=== PATIENT | female | born 1990 | race Caucasian/White ===

== ENCOUNTER → 2017-07-12 | Outpatient (CLI) | payer OTHER ==
[2017-07-12 08:37] LABS: CH 29.1; CHCM 32.7; HCT 39.4 % (34.0-46.0); HDW 2.47; HGB 12.9 gm/dL (11.4-16.0); MCH 29.1 pg (25.0-35.0); MCHC 32.6 g/dL (31.0-37.0); MCV 89.3 fL (80.0-100.0); Mean Platelet Volume 6.9; RBC 4.42 m/uL (3.80-5.40); RDW 13.9 % (11.5-15.5); WBC 6.3 k/uL (3.8-10.6)
--- NOTE | 2017-07-12 08:43 | US ---
EXAMINATION TYPE: US OB <= 14 wk fetus DATE OF EXAM: 07/12/2017 COMPARISON: NONE CLINICAL HISTORY: Confirm Dates Z36. EXAM PERFORMED: Transvaginal (TV) and Transabdominal (TA) EXAM MEASUREMENTS: GESTATIONAL AGE / DATING Physician Established: Not yet established Dates by LMP: unsure Dates by First Scan: No previous this is first scan Dates by Current Scan for: 3.5mm EDC: 6 weeks/0 days MATERNAL ANATOMY Uterus: 11.0 x 5.5. x 7.0cm Right Ovary: 2.8 x 1.8 x 1.9cm Left Ovary: 1.7 x 1.3 x 1.3cm Post CDS / Adnexa: wnl GESTATION / SURVEY CRL: 03.5mm (6 weeks/0 days) Yolk Sac (normal less than 6mm): 1.6mm Heart Rate: not visualized IUP: yes Date of LMP: unsure Beta HcG (if available): Not available at this time No heart rate seen at this time. Called office to give preliminary and was told just to fax the report when complete. IMPRESSION: pole noted with no definite heart tones. Differential diagnosis includes normal too early to detect a heart rate. demise in the differential diagnosis. Correlate with serial beta hCG and pelvic ultrasound as clinically warranted.
[2017-07-12 09:03] LABS: Glucose 99 mg/dL (74-99); Non-African American GFR(MDRD) >60 (>60 ml/min/1.73 sqM)
[2017-07-12 15:25] LABS: Treponemal Ab Non-Reactive (Non-Reactive)
== END | disposition home or self-care (01) ==
LOC: RADUSWWP 07:38
PROVIDERS: ATTEND Obstetrics & Gynecology
DX: Z36.9 Encounter for antenatal screening, unspecified (principal); Z34.81 Encounter for supervision of other normal pregnancy, first trimester; Z3A.01 Less than 8 weeks gestation of pregnancy
CPT/HCPCS: 36415; 76801; 76817; 82565; 82947; 84702; 85027; 86762; 86780; 86850; 86900; 86901; 87340; 87390

== ENCOUNTER → 2017-07-15 | Outpatient (CLI) | payer OTHER ==
[2017-07-15 08:41] LABS: Appearance,Urine Cloudy (Clear); Bilirubin,Urine Negative (Negative); Glucose,Urine (UA) Negative (Negative); Ketones,Urine Negative (Negative); Leukocyte Esterase,Urine Negative (Negative); Mucus,Urine Rare /hpf; Nitrite,Urine Negative (Negative); Particle Count 3437; Protein,Urine Negative (Negative); RBC,Urine 6 /hpf (0-5); Specific Gravity,Urine 1.012 (1.001-1.035); Squamous Epithelial Cell,Urine 1 /hpf (0-4); UA Billing (MACRO vs. MICRO) MICRO; Urobilinogen,Urine <2.0 mg/dL (<2.0); WBC,Urine 1 /hpf (0-5)
== END | disposition home or self-care (01) ==
LOC: LABWHC1 07:03
PROVIDERS: ATTEND Obstetrics & Gynecology
DX: O26.811 Pregnancy related exhaustion and fatigue, first trimester (principal); Z3A.00 Weeks of gestation of pregnancy not specified
CPT/HCPCS: 36415; 81001; 84702; 87086

== ENCOUNTER → 2017-07-22 | Outpatient (CLI) | payer OTHER | END | disposition home or self-care (01) | LOC: LABWHC1 15:32 | PROVIDERS: ATTEND Obstetrics & Gynecology | DX: O03.9 Complete or unspecified spontaneous abortion without complication (principal) | CPT/HCPCS: 36415; 84702 ==

== ENCOUNTER 2017-09-15 10:52 | Emergency (ER) | payer OTHER ==
[2017-09-15] MEDS ORDERED: SODIUM CHLORIDE 0.9% 1,000 ML IV STA (11:18)
[2017-09-15] MEDS ORDERED: METOCLOPRAMIDE 5 MG/ML 2 ML VIAL IVP STA (11:18)
[2017-09-15] MEDS ORDERED: MECLIZINE 12.5 MG TAB PO STA (11:18)
[2017-09-15] MEDS ORDERED: LORazepam 2 MG/ML INJ IV STA ×2 (11:19→11:56)
--- NOTE | 2017-09-15 11:24 | ED ---
General Adult HPI - General Chief complaint: Nausea/Vomiting/Diarrhea Stated complaint: Fever, vomiting Time Seen by Provider: 09/15/17 11:06 Source: patient, RN notes reviewed Mode of arrival: wheelchair Limitations: no limitations - History of Present Illness Initial comments: This a 27-year-old female presents emergency Department chief complaint sudden onset of dizziness, diaphoresis and vomiting. 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 Patient states that she still continues to be dizzy states that she is even dizzy at rest at this time. Patient denies any sort of pain denies chest pain, shortness breath, headache, abdominal pain. She denies any chance . She's had no prior history of vertigo. Patient denies any sick contacts though she did say that she had some diarrhea this morning. Patient's had no fever - Related Data Home Medications Medication Instructions Recorded Confirmed HYDROcodone/APAP 7.5-325MG [[place] 1 tab PO Q6HR PRN 04/28/15 09/15/17 7.5-325] Phentermine HCl [Adipex-P] 37.5 mg PO QAM 04/28/15 09/15/17 Previous Rx's Medication Instructions Recorded Meclizine [Antivert] 25 mg PO TID PRN #15 tab 09/15/17 Ondansetron Odt [Zofran Odt] 4 mg PO Q8HR PRN #10 tab 09/15/17 Allergies Allergy/AdvReac Type Severity Reaction Status Date / Time aspirin Allergy Swelling Verified 09/15/17 11:27 Penicillins Allergy Swelling Verified 09/15/17 11:27 Review of Systems ROS Statement: Those systems with pertinent positive or pertinent negative responses have been documented in the HPI. ROS Other: All systems not noted in ROS Statement are negative. Past Medical History Past Medical History: No Reported History History of Any Multi-Drug Resistant Organisms: None Reported Past Surgical History: Appendectomy, Section Past Anesthesia/Blood Transfusion Reactions: No Reported Reaction Past Psychological History: Anxiety, Depression Smoking Status: Current every day smoker Past Alcohol Use History: None Reported Past Drug Use History: None Reported General Exam Limitations: no limitations General appearance: alert, in no apparent distress, other (Patient is diaphoretic) Head exam: Present: atraumatic, normocephalic, normal inspection Eye exam: Present: normal appearance, PERRL, EOMI. Absent: scleral icterus, conjunctival injection, periorbital swelling ENT exam: Present: normal exam, normal oropharynx, mucous membranes moist, TM's normal bilaterally Neck exam: Present: normal inspection, full ROM. Absent: tenderness, meningismus, lymphadenopathy Respiratory exam: Present: normal lung sounds bilaterally. Absent: respiratory distress, wheezes, rales, rhonchi, stridor Cardiovascular Exam: Present: regular rate, normal rhythm, normal heart sounds. Absent: systolic murmur, diastolic murmur, rubs, gallop, clicks GI/Abdominal exam: Present: soft, normal bowel sounds. Absent: distended, tenderness, guarding, rebound, rigid Neurological exam: Present: alert, oriented X3, CN II-XII intact, reflexes normal. Absent: motor sensory deficit Psychiatric exam: Present: anxious Skin exam: Present: warm, dry, intact, normal color, diaphoretic. Absent: rash Course Vital Signs 09/15/17 11:04 Temperature 97.0 F L Pulse Rate 81 Respiratory 22 Rate Blood Pressure 130/70 O2 Sat by Pulse 100 Oximetry - Reevaluation(s) Reevaluation #1: 09/15/17 12:44 Patient updated and results and recheck at this time. Patient states she is symptom-free and feels much better. EKG Findings - EKG Comments: EKG Findings:: EKG performed at 11:31 normal sinus rhythm with a rate of 78 MO 138 QRS 84 QT/QTC 414/471 Medical Decision Making - Medical Decision Making 27-year-old female presented for dizziness nausea vomiting and sweating. Patient lab work, EKG all reviewed. Patient was given antiemetics, fluids and Antivert. She states she felt better but developed a panic attack at time she was given additional Ativan states that has resolved her symptoms. Patient states that this is has resolved. She was up-to-date on her lab results and agrees that she'll follow-up with primary care physician and return for any worsening symptoms. - Lab Data Result diagrams: 09/15/17 11:35 09/15/17 11:35 Lab Results 09/15/17 09/15/17 09/15/17 Range/Units 11:12 11:35 11:35 WBC 7.0 (3.8-10.6) k/uL RBC 5.11 (3.80-5.40) m/uL Hgb 14.1 (11.4-16.0) gm/dL Hct 43.8 (34.0-46.0) % MCV 85.8 (80.0-100.0) fL MCH 27.7 (25.0-35.0) pg MCHC 32.3 (31.0-37.0) g/dL RDW 15.1 (11.5-15.5) % Plt Count 403 (150-450) k/uL Neutrophils % 57 % Lymphocytes % 31 % Monocytes % 6 % Eosinophils % 2 % Basophils % 1 % Neutrophils # 4.0 (1.3-7.7) k/uL Lymphocytes # 2.2 (1.0-4.8) k/uL Monocytes # 0.4 (0-1.0) k/uL Eosinophils # 0.1 (0-0.7) k/uL Basophils # 0.0 (0-0.2) k/uL D-Dimer (<0.60) mg/L FEU Sodium 145 (137-145) mmol/L Potassium 3.5 (3.5-5.1) mmol/L Chloride 105 (98-107) mmol/L Carbon Dioxide 22 (22-30) mmol/L Anion Gap 18 mmol/L BUN 12 (7-17) mg/dL Creatinine 0.76 (0.52-1.04) mg/dL Est GFR (MDRD) Af Amer >60 (>60 ml/min/1.73 sqM) Est GFR (MDRD) Non-Af >60 (>60 ml/min/1.73 sqM) Glucose 116 H (74-99) mg/dL POC Glucose (mg/dL) 135 H (75-99) mg/dL POC Glu Florist ID Manish, Shellene Calcium 10.4 H (8.4-10.2) mg/dL Total Bilirubin 0.7 (0.2-1.3) mg/dL AST 29 (14-36) U/L ALT 20 (9-52) U/L Alkaline Phosphatase 94 (38-126) U/L Troponin I (0.000-0.034) ng/mL Total Protein 8.4 H (6.3-8.2) g/dL Albumin 5.1 H (3.5-5.0) g/dL 09/15/17 09/15/17 Range/Units 11:35 11:35 WBC (3.8-10.6) k/uL RBC (3.80-5.40) m/uL Hgb (11.4-16.0) gm/dL Hct (34.0-46.0) % MCV (80.0-100.0) fL MCH (25.0-35.0) pg MCHC (31.0-37.0) g/dL RDW (11.5-15.5) % Plt Count (150-450) k/uL Neutrophils % % Lymphocytes % % Monocytes % % Eosinophils % % Basophils % % Neutrophils # (1.3-7.7) k/uL Lymphocytes # (1.0-4.8) k/uL Monocytes # (0-1.0) k/uL Eosinophils # (0-0.7) k/uL Basophils # (0-0.2) k/uL D-Dimer 0.44 (<0.60) mg/L FEU Sodium (137-145) mmol/L Potassium (3.5-5.1) mmol/L Chloride (98-107) mmol/L Carbon Dioxide (22-30) mmol/L Anion Gap mmol/L BUN (7-17) mg/dL Creatinine (0.52-1.04) mg/dL Est GFR (MDRD) Af Amer (>60 ml/min/1.73 sqM) Est GFR (MDRD) Non-Af (>60 ml/min/1.73 sqM) Glucose (74-99) mg/dL POC Glucose (mg/dL) (75-99) mg/dL POC Glu Florist ID Calcium (8.4-10.2) mg/dL Total Bilirubin (0.2-1.3) mg/dL AST (14-36) U/L ALT (9-52) U/L Alkaline Phosphatase (38-126) U/L Troponin I <0.012 (0.000-0.034) ng/mL Total Protein (6.3-8.2) g/dL Albumin (3.5-5.0) g/dL Disposition Clinical Impression: Vertigo, Nausea & vomiting Disposition: HOME SELF-CARE Condition: Stable Instructions: Dizziness (ED) Additional Instructions: Please return to the Emergency Department if symptoms worsen or any other concerns. Prescriptions: Meclizine [Antivert] 25 mg PO TID PRN #15 tab PRN Reason: Vertigo Ondansetron Odt [Zofran Odt] 4 mg PO Q8HR PRN #10 tab PRN Reason: Nausea Referrals: Cori Esqueda MD [Primary Care Provider] - 1-2 days Time of Disposition: 12:45
[2017-09-15 11:32] LABS: Glucose,Whole Blood 135 mg/dL (75-99)
[2017-09-15 11:48] LABS: Basophils % (A) 1 %; Eosinophils # (A) 0.1 k/uL (0-0.7); Eosinophils % (A) 2 %; HCT 43.8 % (34.0-46.0); HGB 14.1 gm/dL (11.4-16.0); Lymphocytes # (A) 2.2 k/uL (1.0-4.8); Lymphocytes % (A) 31 %; MCH 27.7 pg (25.0-35.0); MCHC 32.3 g/dL (31.0-37.0); MCV 85.8 fL (80.0-100.0); Mean Platelet Volume 7.4; Monocytes # (A) 0.4 k/uL (0-1.0); Monocytes % (A) 6 %; Neutrophils % (A) 57 %; Platelet Count 403 k/uL (150-450); RBC 5.11 m/uL (3.80-5.40); RDW 15.1 % (11.5-15.5)
[2017-09-15 12:01] LABS: ALT 20 U/L (9-52); AST 29 U/L (14-36); Albumin 5.1 g/dL (3.5-5.0); Alkaline Phosphatase 94 U/L (38-126); Anion Gap 18 mmol/L; Blood Urea Nitrogen 12 mg/dL (7-17); Calcium 10.4 mg/dL (8.4-10.2); Carbon Dioxide 22 mmol/L (22-30); Chloride 105 mmol/L (98-107); Glucose 116 mg/dL (74-99); Potassium 3.5 mmol/L (3.5-5.1); Sodium 145 mmol/L (137-145); Total Bilirubin 0.7 mg/dL (0.2-1.3); Total Protein 8.4 g/dL (6.3-8.2)
[2017-09-15 13:15] VITALS: BP 127/77; PULSE 70; RESP 20; TEMP 97.8
== END 2017-09-15 13:13 | disposition home or self-care (01) ==
LOC: EC 10:52
DX: R11.2 Nausea with vomiting, unspecified (principal); R42 Dizziness and giddiness; F41.9 Anxiety disorder, unspecified; R61 Generalized hyperhidrosis; R19.7 Diarrhea, unspecified; F17.200 Nicotine dependence, unspecified, uncomplicated; Z79.899 Other long term (current) drug therapy; Z88.0 Allergy status to penicillin; Z88.6 Allergy status to analgesic agent; Z90.49 Acquired absence of other specified parts of digestive tract
CPT/HCPCS: 36415; 93005; 85379; 80053; 84484; 85025; 99284; 96374; 96375; 96361; J2060; J2765

== ENCOUNTER → 2018-03-11 | Outpatient (CLI) | payer OTHER ==
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
== END | disposition home or self-care (01) ==
LOC: RADMRIMAIN 21:13
PROVIDERS: ATTEND Psychiatry & Neurology Neurology
DX: M47.812 Spondylosis without myelopathy or radiculopathy, cervical region (principal); Z88.6 Allergy status to analgesic agent; Z88.0 Allergy status to penicillin
CPT/HCPCS: 72141

== ENCOUNTER 2018-04-18 00:38 | Emergency (ER) | payer OTHER ==
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
[2018-04-18] MEDS ORDERED: KETOROLAC 60 MG/2 ML VIAL IM STA (03:22)
[2018-04-18 03:35] VITALS: BP 131/58; PULSE 69; RESP 16; TEMP 98.7
== END 2018-04-18 03:35 | disposition home or self-care (01) ==
LOC: EC 00:38
DX: S06.0X0A Concussion without loss of consciousness, initial encounter (principal); S00.83XA Contusion of other part of head, initial encounter; H70.11 Chronic mastoiditis, right ear; F17.200 Nicotine dependence, unspecified, uncomplicated; Z79.899 Other long term (current) drug therapy; Z88.0 Allergy status to penicillin; Z88.6 Allergy status to analgesic agent; Y04.0XXA Assault by unarmed brawl or fight, initial encounter
CPT/HCPCS: 81025; 72125; 70486; 70450; 99284; 96372; J1885

== ENCOUNTER 2019-11-06 14:40 | Emergency (ER) | payer OTHER ==
[2019-11-06 14:43] VITALS: BP 121/83; PULSE 106; TEMP 98.4
--- NOTE | 2019-11-06 15:29 | ED ---
General Adult HPI - General Chief complaint: Fever Stated complaint: poss flu/fever/son has positive influenza Time Seen by Provider: 11/06/19 14:44 Source: patient, RN notes reviewed Mode of arrival: ambulatory Limitations: no limitations - History of Present Illness Initial comments: 29-year-old female presents to the emergency department for a chief complaint of flulike symptoms. Patient states she has had cough congestion for 3 days. States she has had body aches as well. Patient believes she has been having fevers at home. States that her child was diagnosed with influenza A. Patient does admit to smoking but states she has cutback while she's been sick. She denies chest pain or shortness of breath. Denies sore throat or ear pain. No recent foreign or domestic travel. Patient has no other complaints at this time including shortness of breath, chest pain, abdominal pain, nausea or vomiting, headache, or visual changes. - Related Data Home Medications Medication Instructions Recorded Confirmed HYDROcodone/APAP 7.5-325MG [[place] 1 tab PO Q6HR PRN 04/28/15 09/15/17 7.5-325] Phentermine HCl [Adipex-P] 37.5 mg PO QAM 04/28/15 09/15/17 Previous Rx's Medication Instructions Recorded Meclizine [Antivert] 25 mg PO TID PRN #15 tab 09/15/17 Ondansetron Odt [Zofran Odt] 4 mg PO Q8HR PRN #10 tab 09/15/17 Ibuprofen [Motrin] 600 mg PO Q6HR PRN #30 day 04/18/18 Allergies Allergy/AdvReac Type Severity Reaction Status Date / Time amoxicillin Allergy Unknown Verified 11/06/19 14:42 aspirin Allergy Swelling Verified 11/06/19 14:42 Penicillins Allergy Swelling Verified 11/06/19 14:42 Review of Systems ROS Statement: Those systems with pertinent positive or pertinent negative responses have been documented in the HPI. ROS Other: All systems not noted in ROS Statement are negative. Past Medical History Past Medical History: No Reported History History of Any Multi-Drug Resistant Organisms: None Reported Past Surgical History: Appendectomy, Section Past Anesthesia/Blood Transfusion Reactions: No Reported Reaction Past Psychological History: Anxiety, Depression Smoking Status: Current every day smoker Past Alcohol Use History: None Reported Past Drug Use History: Marijuana General Exam Limitations: no limitations General appearance: alert, in no apparent distress Head exam: Present: atraumatic, normocephalic, normal inspection Eye exam: Present: normal appearance, PERRL, EOMI. Absent: scleral icterus, conjunctival injection, periorbital swelling ENT exam: Present: normal exam, normal oropharynx, mucous membranes moist, TM's normal bilaterally, normal external ear exam Neck exam: Present: normal inspection, full ROM. Absent: tenderness, meningismus, lymphadenopathy Respiratory exam: Present: normal lung sounds bilaterally. Absent: respiratory distress, wheezes, rales, rhonchi, stridor Cardiovascular Exam: Present: regular rate, normal rhythm, normal heart sounds. Absent: systolic murmur, diastolic murmur, rubs, gallop, clicks GI/Abdominal exam: Present: soft, normal bowel sounds. Absent: distended, tenderness, guarding, rebound, rigid Neurological exam: Present: alert Course Vital Signs 11/06/19 14:41 Temperature 98.4 F Pulse Rate 106 H Respiratory 20 Rate Blood Pressure 121/83 O2 Sat by Pulse 100 Oximetry Procedures - Smoking Cessation Time Spent Discussing Smoking Cessation w/Patient (Minutes): 3 Patient Acknowledges Need for Cessation: Yes Medical Decision Making - Medical Decision Making 29-year-old well-appearing female presents for cough and fever. Patient has had symptoms for about 3 days. Patient sent have influenza A. Vitals are stable. Physical exam is unremarkable. Lungs are clear to auscultation bilaterally.Influenza A positive. Chest x-ray negative for acute process. Patient is outside of the [place] for Tamiflu. Recommended fluids and Motrin and Tylenol. Recommended returning for any worsening symptoms and otherwise following up with primary care. - Lab Data Lab Results 11/06/19 Range/Units 15:00 Influenza Type A RNA Detected H (Not Detectd) Influenza Type B (PCR) Not Detected (Not Detectd) Disposition Clinical Impression: Influenza A Disposition: HOME SELF-CARE Condition: Good Instructions (If sedation given, give patient instructions): Fever in Adults (ED), Influenza (ED) Additional Instructions: Please take Motrin and Tylenol for fever and pain alternating up to every 3 hours as needed. You may take up to 600 mg of Motrin and up to 1-2 extra strength Tylenols at a time. Return for any worsening symptoms or difficulty breathing. Otherwise follow-up with primary care in 1-2 days. Is patient prescribed a controlled substance at d/c from ED?: No Referrals: Cori Esqueda MD [Primary Care Provider] - 1-2 days Time of Disposition: 15:54
--- NOTE | 2019-11-06 15:48 | XR ---
EXAMINATION TYPE: XR chest 2V DATE OF EXAM: 11/06/2019 COMPARISON: NONE HISTORY: Cough and thoracic back pain for 3 days. Fever. TECHNIQUE: Frontal and lateral views of the chest are obtained. FINDINGS: There is no focal air space opacity, pleural effusion, or pneumothorax seen. The cardiac silhouette size is within normal limits. The osseous structures are intact. IMPRESSION: No acute cardiopulmonary process.
[2019-11-06 16:18] VITALS: RESP 19
== END 2019-11-06 16:18 | disposition home or self-care (01) ==
LOC: EC 14:40
DX: J10.1 Influenza due to other identified influenza virus with other respiratory manifestations (principal); F17.200 Nicotine dependence, unspecified, uncomplicated; Z20.828 Contact with and (suspected) exposure to other viral communicable diseases; Z88.0 Allergy status to penicillin; Z88.1 Allergy status to other antibiotic agents; Z88.6 Allergy status to analgesic agent; Z71.6 Tobacco abuse counseling
CPT/HCPCS: 71046; 87502; 99283; 99406

== ENCOUNTER → 2022-01-08 | Outpatient (CLI) | payer OTHER ==
--- NOTE | 2022-01-08 14:52 | US ---
EXAMINATION TYPE: Transabdominal DATE OF EXAM: 01/08/2022 1:48 PM COMPARISON: NONE CLINICAL HISTORY: Z36.89 CONFIRM DATES AND VIABILITY. Positive beta-hCG test. EXAM PERFORMED: Transabdominal (TA) EXAM MEASUREMENTS: GESTATIONAL AGE / DATING Physician Established: (11 weeks/4 days) EDC: 07/26/2022 Dates by LMP: (11 weeks/4 days) EDC: 07/26/2022 Dates by First Scan: ( weeks/ days) EDC: No previous Dates by Current Scan for: (12 weeks/2 days) EDC: 07/21/22 MATERNAL ANATOMY Uterus: 14.3 x 8.7 x 8.0 cm Right Ovary: 2.3 x 1.9 x 1.6 cm Left Ovary: 3.3 x 2.4 x 2.0 cm Post CDS / Adnexa: wnl Presence of free fluid: no Presence of corpus luteal cyst: no Presence of subchorionic bleed: no GESTATION / SURVEY CRL: 5.9 (12 weeks/3 days) MSD: 5.7 (11 weeks/5 days) Heart Rate: 175 bpm Rhythm: Normal IUP: Viable IUP Age Appropriate Anatomy Cord Insertion: Visualized Limbs: Visualized Calvarium: Visualized Date of LMP: 10/19/21 Beta HcG (if available): Single live intrauterine gestation as gestational sac and pole seen. Yolk sac not clearly ident ified. No free fluid. Both ovaries seen. No suspicious extraovarian adnexal mass noted. IMPRESSION: Single live intrauterine gestation now identified, mean crown-rump length is 5.9 cm corre sponding to 12 weeks 3 day old fetus.
== END | disposition home or self-care (01) ==
LOC: RADUSWWP 13:12
PROVIDERS: ATTEND Obstetrics & Gynecology
DX: Z36.89 Encounter for other specified antenatal screening (principal); Z3A.12 12 weeks gestation of pregnancy
CPT/HCPCS: 76801

== ENCOUNTER 2022-03-04 14:52 | Emergency (ER) | payer OTHER ==
[2022-03-04 14:55] VITALS: TEMP 98.5
[2022-03-04] MEDS ORDERED: DEXAMETHASONE SOD PHOSPHATE 10 MG/ML 1 ML VIAL IM STA (16:09)
[2022-03-04] MEDS ORDERED: ALBUTEROL NEBULIZED 2.5 MG/3 ML INHALATION STA (16:09)
[2022-03-04] MEDS ORDERED: ACETAMINOPHEN TAB 500 MG TAB PO STA (16:10)
--- NOTE | 2022-03-04 16:15 | ED ---
URI HPI - General Chief Complaint: Upper Respiratory Infection Stated Complaint: SOB/Congestion/Cough Time Seen by Provider: 03/04/22 16:03 Source: patient, RN notes reviewed Mode of arrival: ambulatory Limitations: no limitations - History of Present Illness Initial Comments: This is a 31-year-old female presents to emergency department complaining of symptoms of upper respiratory infection for the past 3 days. Patient states that she has a clear runny nose, scratchy throat, nasal congestion, dry cough, some sinus pressure, possible subjective low-grade fever. States she's also had some shortness of breath. Patient is a cigarette smoker. Patient is also 19 weeks . Patient is A3. Patient denies any abdominal pain. She denies any vaginal bleeding. No vaginal leakage. No difficulties with the . Patient did use her significant other's inhaler yesterday and states that it didn't help. Patient has no history of asthma or other lung pathology. No headache, no fever or chills, no changes in vision or hearing, no sore throat or difficulty with speech, no neck pain, no chest pain, no abdominal pain, no nausea or vomiting, no changes in urination or bowel movements, no numbness or tingling, no extremity pain, no skin rashes or lesions. MD Complaint: cough, rhinorrhea, nasal congestion Onset/Timin -: days(s) - Related Data Home Medications Medication Instructions Recorded Confirmed HYDROcodone/APAP 7.5-325MG [[place] 1 tab PO Q6HR PRN 04/28/15 09/15/17 7.5-325] Phentermine HCl [Adipex-P] 37.5 mg PO QAM 04/28/15 09/15/17 Previous Rx's Medication Instructions Recorded Meclizine [Antivert] 25 mg PO TID PRN #15 tab 09/15/17 Ondansetron Odt [Zofran Odt] 4 mg PO Q8HR PRN #10 tab 09/15/17 Ibuprofen [Motrin] 600 mg PO Q6HR PRN #30 day 04/18/18 Albuterol Inhaler [Ventolin Hfa 2 puff INHALATION Q4HR PRN #1 each 03/04/22 Inhaler] Allergies Allergy/AdvReac Type Severity Reaction Status Date / Time amoxicillin Allergy Unknown Verified 07/10/22 14:53 aspirin Allergy Swelling Verified 03/04/22 14:53 Penicillins Allergy Swelling Verified 03/04/22 14:53 Review of Systems ROS Statement: Those systems with pertinent positive or pertinent negative responses have been documented in the HPI. ROS Other: All systems not noted in ROS Statement are negative. Past Medical History Past Medical History: No Reported History Additional Past Medical History / Comment(s): Fibromyalgia. History of Any Multi-Drug Resistant Organisms: None Reported Past Surgical History: Appendectomy, Section Past Anesthesia/Blood Transfusion Reactions: No Reported Reaction Past Psychological History: Anxiety, Depression Smoking Status: Never smoker Past Alcohol Use History: None Reported Past Drug Use History: Marijuana General Exam - General Exam Comments Initial Comments: Nontoxic-appearing 31-year-old female in no significant distress. Appears to be adequately hydrated. Dry cough noted throughout the course of the exam. Cranial nerves II through XII grossly intact Limitations: no limitations General appearance: alert, in no apparent distress Head exam: Present: atraumatic, normocephalic, normal inspection Eye exam: Present: normal appearance, PERRL, EOMI. Absent: scleral icterus, conjunctival injection, periorbital swelling ENT exam: Present: normal exam, normal oropharynx, mucous membranes moist, TM's normal bilaterally, normal external ear exam, other (Clear postnasal drainage noted). Absent: mucous membranes dry Expanded Ear exam: Present: normal external inspection Mouth exam: Present: normal external inspection. Absent: drooling, trismus, muffled voice, tongue normal, tongue elevation Teeth exam: Present: normal inspection Throat exam: negative: tonsillar erythema, tonsillomegaly, tonsillar exudate, R peritonsillar mass, L peritonsillar mass Neck exam: Present: normal inspection. Absent: tenderness, meningismus, lymphadenopathy Respiratory exam: Present: normal lung sounds bilaterally. Absent: respiratory distress, wheezes, rales, rhonchi, stridor Cardiovascular Exam: Present: regular rate, normal rhythm, normal heart sounds. Absent: systolic murmur, diastolic murmur, rubs, gallop, clicks GI/Abdominal exam: Present: soft, normal bowel sounds. Absent: distended, tenderness, guarding, rebound, rigid Extremities exam: Present: normal inspection, full ROM, normal capillary refill. Absent: tenderness, pedal edema, joint swelling, calf tenderness Back exam: Present: normal inspection Neurological exam: Present: alert, oriented X3, CN II-XII intact Psychiatric exam: Present: normal affect, normal mood Skin exam: Present: warm, dry, intact, normal color. Absent: rash Course Vital Signs 03/04/22 03/04/22 03/04/22 14:53 17:27 17:35 Temperature 98.5 F Pulse Rate 100 100 100 Respiratory 18 Rate Blood Pressure 119/76 O2 Sat by Pulse 99 Oximetry - Reevaluation(s) Reevaluation #1: 03/04/22 17:46 Medical record is reviewed Symptoms are improved here in the emergency department Patient is informed of results and questions answered Patient in no distress Procedures - Smoking Cessation Time Spent Discussing Smoking Cessation w/Patient (Minutes): 3 Patient Acknowledges Need for Cessation: Yes Medical Decision Making - Medical Decision Making Patient symptomology consistent with a viral upper respiratory infection. Patient is 19 weeks . Patient does not appear to be overtly ill or toxic. We'll order a dose of dexamethasone, albuterol treatment, COVID-19, influenza testing. heart tone testing. I do not believe the patient needs chest x-ray at this point. Findings not consistent with bacterial pneumonia. Patient is afebrile. Vital signs are reviewed. Oxygen saturation is normal. Patient is a cigarette smoker. I did counseling case manager the patient on smoking cessation. heart tones were in the 150s. Patient's symptomology consistent with viral bronchitis/viral URI. Patient improved after albuterol treatment. We will prescribe an inhaler. Patient was told to return to the ER for any signs or symptoms worsen. Told to return immediately if any other problems arise. All questions answered. Treatment plan discussed. Patient in agreement Every effort has been made to ensure accuracy of this dictation. However, due to the limitations of electronic medical records and dictation devices, errors in charting still occur. Water Truck Driver Dr. Key - Lab Data Lab Results 03/04/22 03/04/22 Range/Units 16:33 16:33 Coronavirus (PCR) Not Detected (Not Detectd) Influenza Type A RNA Not Detected (Not Detectd) Influenza Type B (PCR) Not Detected (Not Detectd) Disposition Clinical Impression: Viral URI with cough, Cigarette smoker Disposition: HOME SELF-CARE Condition: Good Instructions (If sedation given, give patient instructions): How to Stop Smoking (ED), Secondhand Smoke Exposure in Children (ED) Additional Instructions: Follow-up with your regular physician as directed. Return to the ER immediately if any symptoms worsen, new symptoms arise, or any other problems develop. Follow-up with your GRANULIZING MACHINE OPERATOR physician in 2-3 days for reevaluation. Prescriptions: Albuterol Inhaler [Ventolin Hfa Inhaler] 2 puff INHALATION Q4HR PRN #1 each PRN Reason: Wheezing Is patient prescribed a controlled substance at d/c from ED?: No Referrals: None,Stated [REFERRING] - 1-2 days Time of Disposition: 17:47
[2022-03-04 18:01] VITALS: BP 125/64; PULSE 85; RESP 15
== END 2022-03-04 18:01 | disposition home or self-care (01) ==
LOC: EC 14:52
DX: J06.9 Acute upper respiratory infection, unspecified (principal); F17.210 Nicotine dependence, cigarettes, uncomplicated; Z20.822 Contact with and (suspected) exposure to COVID-19; Z88.0 Allergy status to penicillin; Z88.6 Allergy status to analgesic agent
CPT/HCPCS: 94640; 87502; 87635; 99284; 96372; J1100

== ENCOUNTER → 2022-05-01 | Outpatient (CLI) | payer OTHER ==
[2022-05-01 14:45] LABS: MCH 24.7 pg (27.0-32.0); MCV 79.5 fL (80.0-97.0); Mean Platelet Volume 10.1 fL (9.5-12.2); NRBC Per 100 WBC 0 /100 WBCS (0.0-0.0); Platelet Count 335 X 10*3/uL (140-440); RBC 3.65 X 10*6/uL (4.10-5.20); RDW 15.9 % (11.5-14.5); WBC 7.57 X 10*3/uL (4.50-10.00)
== END | disposition home or self-care (01) ==
LOC: LABWHC1 08:52
PROVIDERS: ATTEND Obstetrics & Gynecology
DX: Z34.82 Encounter for supervision of other normal pregnancy, second trimester (principal); Z3A.00 Weeks of gestation of pregnancy not specified
CPT/HCPCS: 36415; 82950; 85027

== ENCOUNTER 2022-06-22 10:07 | Inpatient (IN) | payer OTHER ==
--- NOTE | 2022-06-22 11:12 | US ---
EXAMINATION TYPE: US OB limited DATE OF EXAM: 06/22/2022 COMPARISON: US CLINICAL HISTORY: unable to find heart tones with doppler or u/s. No heart tones in L&D at 35 weeks g estation EXAM PERFORMED: Transabdominal (TA) SURVEY HEART RATE: -- No heart tones detected by color or pulsed doppler, consistent with demise L&D RN at bedside during exam, giving Dr. Conway results IMPRESSION: Correlate for demise.
[2022-06-22] MEDS ORDERED: LACTATED RINGERS 1,000 ML IV ONE (11:22)
[2022-06-22] MEDS ORDERED: CITRIC ACID-SODIUM CITRATE 15 ML CUP PO ONE (11:22)
[2022-06-22] MEDS ORDERED: LACTATED RINGERS 1,000 ML IV SCH (11:30)
[2022-06-22 11:47] LABS: Anisocytosis Slight; Basophils % (A) 0 %; Eosinophils # (A) 0.1 k/uL (0-0.7); Eosinophils % (A) 2 %; HCT 34.6 % (34.0-46.0); Hypochromasia Moderate; Lymphocytes # (A) 1.5 k/uL (1.0-4.8); Lymphocytes % (A) 19 %; MCH 25.4 pg (25.0-35.0); MCHC 31.7 g/dL (31.0-37.0); MCV 79.9 fL (80.0-100.0); Mean Platelet Volume 7.7; Monocytes # (A) 0.3 k/uL (0-1.0); Monocytes % (A) 3 %; Neutrophils # (A) 6.2 k/uL (1.3-7.7); Neutrophils % (A) 74 %; Platelet Count 377 k/uL (150-450); RBC 4.33 m/uL (3.80-5.40); RDW 16.8 % (11.5-15.5); WBC 8.3 k/uL (3.8-10.6)
[2022-06-22] MEDS ORDERED: KETOROLAC 15 MG/ML 1 ML VIAL ONE (12:13)
[2022-06-22] MEDS ORDERED: ePHEDrine 50 MG/ML 1 ML VIAL ONE (12:13)
[2022-06-22] MEDS ORDERED: MIDAZOLAM 2 MG/2 ML VIAL ONE (12:13)
[2022-06-22] MEDS ORDERED: ONDANSETRON 4 MG/2 ML VIAL ONE (12:13)
[2022-06-22] MEDS ORDERED: NALBUPHINE 10 MG/ML (1 ML AMP) ONE (12:13)
[2022-06-22] MEDS ORDERED: MORPHINE SULFATE (PF) 0.3 MG/0.3 ML SYR ONE (12:13)
[2022-06-22] MEDS ORDERED: SIMETHICONE 80 MG CHEWABLE PO PRN (13:17)
[2022-06-22] MEDS ORDERED: ONDANSETRON 4 MG/2 ML VIAL IVP PRN (13:17)
[2022-06-22] MEDS ORDERED: METOCLOPRAMIDE 5 MG/ML 2 ML VIAL IVP PRN (13:17)
[2022-06-22] MEDS ORDERED: LANOLIN CREAM 5 GM TUBE TOPICAL PRN (13:17)
[2022-06-22] MEDS ORDERED: diphenhydrAMINE 50 MG CAP PO PRN (13:17)
[2022-06-22] MEDS ORDERED: ZOLPIDEM 5 MG TAB PO PRN (13:17)
[2022-06-22] MEDS ORDERED: diphenhydrAMINE 50 MG/ML 1 ML VIAL IVP PRN ×2 (13:17)
[2022-06-22] MEDS ORDERED: NALOXONE 0.4 MG/ML 1 ML VIAL IV PRN ×2 (13:17→13:31)
[2022-06-22] MEDS ORDERED: diphenhydrAMINE 25 MG CAP PO PRN (13:17)
[2022-06-22] MEDS ORDERED: OXYTOCIN 30 UNITS/500 ML NS 30 UNIT in SALINE 1 500ML.BAG IV SCH (13:30)
[2022-06-22] MEDS ORDERED: MORPHINE SULFATE 2 MG/ML SYRINGE IVP PRN (13:31)
--- NOTE | 2022-06-22 17:19 | P.HPOB ---
History of Present Illness H&P Date: 06/22/22 Chief Complaint: contractions, absent heart tones 31 year old presents at 35 weeks 1 day complaining of contractions. Her cervix was closed and she was sary 2-4 minutes apart. heart tones could not be assessed so US was done. Pt was diagnosed with a demise. She has had 3 previous c-sections and will undergo another for this . She has been followed for Grade III placenta, IUGR, EIF that resolved and showed normal echo. BPP 3 weeks ago showed elevated dopplers. BPP 2 weeks ago 04/02 with normal dopplers. NST last week reactive. Pt did not come to her US this week and said she felt movement as recently as last night. Review of Systems All systems: negative Constitutional: Denies chills, Denies fever Eyes: denies blurred vision, denies pain Ears, nose, mouth and throat: Denies headache, Denies sore throat Cardiovascular: Denies chest pain, Denies shortness of breath Respiratory: Denies cough Gastrointestinal: Denies abdominal pain, Denies diarrhea, Denies nausea, Denies vomiting Genitourinary: Denies dysuria, Denies hematuria Musculoskeletal: Denies myalgias Integumentary: Denies pruritus, Denies rash Neurological: Denies numbness, Denies weakness Psychiatric: Denies anxiety, Denies depression Endocrine: Denies fatigue, Denies weight change Past Medical History Past Medical History: No Reported History Additional Past Medical History / Comment(s): Fibromyalgia. History of Any Multi-Drug Resistant Organisms: None Reported Past Surgical History: Appendectomy, Section Past Anesthesia/Blood Transfusion Reactions: No Reported Reaction Past Psychological History: Anxiety, Depression Smoking Status: Current every day smoker Past Alcohol Use History: None Reported Past Drug Use History: Marijuana (daily use, advised to stop several times throughout her ), Methamphetamine (history, last used in October 2021) - Past Family History Father Family Medical History: Hypertension Medications and Allergies Allergies Allergy/AdvReac Type Severity Reaction Status Date / Time amoxicillin Allergy Unknown Verified 06/22/22 10:31 aspirin Allergy Swelling Verified 06/22/22 10:31 Penicillins Allergy Swelling Verified 06/22/22 10:31 Exam Osteopathic Statement: *. No significant issues noted on an osteopathic structural exam other than those noted in the History and Physical/Consult. Vital Signs Temp Pulse Resp BP Pulse Ox 06/22/22 15:02 99 16 98 06/22/22 14:32 98 16 98 06/22/22 14:02 102 H 16 124/66 99 06/22/22 13:47 99 16 116/58 98 06/22/22 13:32 100 16 111/57 99 06/22/22 13:31 18 116/58 98 06/22/22 13:17 100 18 123/57 98 06/22/22 13:02 100 16 130/62 98 06/22/22 10:30 97.9 F 92 16 138/87 98 Intake and Output 06/22/22 06/22/22 06/22/22 06:59 14:59 22:59 Output Total 500 60 Balance -500 -60 Output: Urine 200 Estimated Blood Loss 300 Output, Quantitative 60 Blood Loss Other: Weight 106.594 kg Heart: Regular rate and rhythm Lungs: Clear to auscultation bilaterally Abdomen: Soft, nontender Extremities: Negative Homans sign Results Result Diagrams: 06/22/22 11:26 Abnormal Lab Results - Last 24 Hours (Table) 06/22/22 Range/Units 11:26 Hgb 11.0 L (11.4-16.0) gm/dL MCV 79.9 L (80.0-100.0) fL RDW 16.8 H (11.5-15.5) % Assessment and Plan (1) demise, greater than 22 weeks, antepartum, single gestation Current Visit: Yes Status: Acute Code(s): O36.4XX0 - MATERNAL CARE FOR INTRAUTERINE , NOT APPLICABLE OR UNSP SNOMED Code(s): 74029795 (2) Previous delivery affecting , antepartum Current Visit: Yes Status: Acute Code(s): O34.219 - MATERNAL CARE FOR UNSP TYPE SCAR FROM PREVIOUS DEL SNOMED Code(s): 045783328 Plan: 1. repeat low transverse
--- NOTE | 2022-06-22 17:23 | P.OP ---
Date of Procedure: 06/22/22 Preoperative Diagnosis: 1. at 35 weeks 1 day 2. IUGR 3. demise Postoperative Diagnosis: 1. at 35 weeks 1 day 2. IUGR 3. demise 4. meconium fluid Procedure(s) Performed: Repeat low transverse Anesthesia: spinal Surgeon: Luiza Conway Manager [employer]: [employer] Estimated Blood Loss (ml): 300 IV fluids (ml): 800 Urine output (ml): 200 Pathology: other (Placenta) Condition: stable Disposition: floor Operative Findings: None viable female 0 and 0. Weight 3 lbs. 8 oz. Dark meconium- stained fluid, placenta was small and calcified. Normal uterus, tubes, ovaries. Description of Procedure: Patient was taken to the operating room where spinal anesthesia was found be adequate. She was prepped and draped in normal sterile fashion in dorsal supine position with a leftward tilt. Pfannenstiel skin incision was made the scalpel and carried through to the underlying layer of fascia with the scalpel. Fascia was incised in midline and carried bilaterally with the Parks scissors. The superior aspect of the fascial incision was grasped with Case clamps elevated and the underlying rectus muscles dissected off with the Parks's. Attention was then turned to inferior aspect of same incision which in a similar fashion was grasped tented up and the underlying rectus muscles dissected off with the Parks's. The rectus muscles were the midline and the peritoneum was identified tented up and entered sharply with the scalpel. The incision was extended superiorly and inferiorly with good visualization of the bladder. The bladder blade was inserted and the vesicouterine peritoneum was incised the Metzenbaums then carried bilaterally and bladder flap created digitally. A low transverse incision was then made on the uterus with the scalpel. This was carried bilaterally and digital manner. 's head delivered atraumatically, cord clamped and cut, handed off to waiting nurses. Apgars 0,0, weight 3 lbs. 8 oz. Placenta delivered manually, intact with three-vessel cord. The uterus is exteriorized and cleared of all clots and debris. The uterine incision was closed with 0 Vicryl in a running locked fashion. Second layer of the same sutures used in imbricating fashion to obtain excellent hemostasis. Both ovaries and tubes appeared normal. The uterus was placed back into the abdomen. The peritoneum had to much scarring to bring back together. The muscles were reapproximated using 2-0 Vicryl in interrupted fashion. The fascia was reapproximated using 0 Vicryl in a running fashion. The subcutaneous tissues closed with 3-0 Vicryl running fashion. The skin was closed linad. Patient tolerated the procedure well, sponge and instrument counts were correct times 2 and she was taken to the recovery room in stable condition.
[2022-06-22] MEDS: IBUPROFEN 600 MG TAB PO SCH (21:50)
[2022-06-22] MEDS: SENNOSIDES-DOCUSATE SODIUM 1 EACH TAB PO SCH (22:41)
[2022-06-22] MEDS: ACETAMINOPHEN TAB 500 MG TAB PO SCH (22:41)
[2022-06-22] MEDS: LACTATED RINGERS 1,000 ML IV SCH (23:10)
[2022-06-23] MEDS: ACETAMINOPHEN TAB 500 MG TAB PO SCH ×5 (00:38→23:09)
[2022-06-23] MEDS: LACTATED RINGERS 1,000 ML IV SCH ×2 (01:12→06:16)
[2022-06-23] MEDS: IBUPROFEN 600 MG TAB PO SCH ×4 (03:49→19:40)
[2022-06-23] MEDS: KETOROLAC 15 MG/ML 1 ML VIAL IVP SCH ×3 (03:50→20:16)
[2022-06-23 07:52] LABS: Anisocytosis Slight; Basophils % (A) 0 %; Eosinophils # (A) 0.1 k/uL (0-0.7); Eosinophils % (A) 2 %; Hypochromasia Marked; Lymphocytes # (A) 1.6 k/uL (1.0-4.8); Lymphocytes % (A) 20 %; MCH 25.3 pg (25.0-35.0); MCHC 31.3 g/dL (31.0-37.0); MCV 81.1 fL (80.0-100.0); Mean Platelet Volume 8.4; Monocytes # (A) 0.3 k/uL (0-1.0); Monocytes % (A) 3 %; Neutrophils # (A) 5.7 k/uL (1.3-7.7); Neutrophils % (A) 72 %; Platelet Count 321 k/uL (150-450); RBC 3.45 m/uL (3.80-5.40); RDW 17.3 % (11.5-15.5)
[2022-06-23 08:05] LABS: HGB 8.7 gm/dL (11.4-16.0)
[2022-06-23] MEDS: SENNOSIDES-DOCUSATE SODIUM 1 EACH TAB PO SCH ×2 (09:48→19:41)
--- NOTE | 2022-06-23 09:56 | P.PNOBGPC ---
Subjective - Subjective Principal diagnosis: Status post repeat low transverse postop day #1 Interval history: Patient seen and examined. Appropriately tearful. Her pain is well-controlled. Denies nausea, vomiting, chest pain, shortness of breath or any calf pain. Patient reports: Reports appetite normal, Reports voiding normally, Reports pain well controlled, Reports ambulating normally Objective - Vital Signs Latest vital signs: Vital Signs Temp Pulse Resp BP Pulse Ox 06/23/22 08:00 98.7 F 86 14 95/63 06/23/22 03:50 98.3 F 105 H 16 107/60 96 06/22/22 23:51 98.6 F 110 H 18 124/67 98 06/22/22 20:00 98.5 F 101 H 18 136/80 98 06/22/22 18:31 16 98 06/22/22 16:31 18 98 06/22/22 15:02 99 16 98 06/22/22 14:32 98 16 98 06/22/22 14:31 16 06/22/22 14:02 102 H 16 124/66 99 06/22/22 13:47 99 16 116/58 98 06/22/22 13:32 100 16 111/57 99 06/22/22 13:31 18 116/58 98 06/22/22 13:17 100 18 123/57 98 06/22/22 13:02 100 16 130/62 98 06/22/22 10:30 97.9 F 92 16 138/87 98 Intake and Output 06/22/22 06/23/22 06/23/22 22:59 06:59 14:59 Output Total 585 1150 Balance -585 -1150 Output: Urine 525 550 Uretheral (Valle) 425 Estimated Blood Loss 600 Output, Quantitative 60 Blood Loss Other: # Voids 1 1 - Exam Lungs: bilateral: normal Chest: Normal S1, Normal S2 Extremities: Present: normal Abdomen: Present: normal appearance, soft, other (Active bowel sounds in all 4 quadrants). Absent: distention, tenderness Incision: Present: normal, dry, intact Uterus: Present: normal, firm - Labs Labs: Abnormal Lab Results - Last 24 Hours (Table) 06/22/22 06/23/22 Range/Units 11:26 06:09 RBC 3.45 L (3.80-5.40) m/uL Hgb 11.0 L 8.7 L D (11.4-16.0) gm/dL Hct 28.0 L (34.0-46.0) % MCV 79.9 L (80.0-100.0) fL RDW 16.8 H 17.3 H (11.5-15.5) % Assessment and Plan (1) demise, greater than 22 weeks, antepartum, single gestation Current Visit: Yes Status: Resolved Code(s): O36.4XX0 - MATERNAL CARE FOR INTRAUTERINE , NOT APPLICABLE OR UNSP SNOMED Code(s): 24577641 (2) Previous delivery affecting , antepartum Current Visit: Yes Status: Resolved Code(s): O34.219 - MATERNAL CARE FOR UNSP TYPE SCAR FROM PREVIOUS DEL SNOMED Code(s): 235587862 (3) Status post repeat low transverse section Current Visit: Yes Status: Acute Code(s): Z98.891 - HISTORY OF UTERINE SCAR FROM PREVIOUS SURGERY SNOMED Code(s): 865785886 (4) demise > 22 weeks, delivered, current hospitalization Current Visit: Yes Status: Acute Code(s): O36.4XX0 - MATERNAL CARE FOR INTRAUTERINE , NOT APPLICABLE OR UNSP SNOMED Code(s): 553807159 Plan: 1. Increase ambulation 2. Pain management
--- NOTE | 2022-06-23 10:58 | P.PN ---
Progress Note - Text 06/23/22 727am 79-year-old female status post with spinal Duramorph. Patient seen and evaluated for postop pain control, patient has a VAS of 2 with no complains of nausea vomiting or pruritus. Doing well.
[2022-06-24 00:03] VITALS: RESP 18; TEMP 98.1
[2022-06-24] MEDS: IBUPROFEN 600 MG TAB PO SCH (05:00)
[2022-06-24] MEDS: ACETAMINOPHEN TAB 500 MG TAB PO SCH ×2 (08:10→08:54)
--- NOTE | 2022-06-24 09:07 | P.DS ---
Providers Date of admission: 06/22/22 11:07 Expected date of discharge: 06/24/22 Attending physician: Luiza Conway Primary care physician: Stated None - Discharge Diagnosis(es) (1) demise, greater than 22 weeks, antepartum, single gestation Current Visit: Yes Status: Resolved (2) Previous delivery affecting , antepartum Current Visit: Yes Status: Resolved (3) Status post repeat low transverse section Current Visit: Yes Status: Acute (4) demise > 22 weeks, delivered, current hospitalization Current Visit: Yes Status: Acute Hospital Course: She presented at 35 weeks and 1 day complaining of contractions with absent heart tones. She had a previous and was planning repeat. She did have undergo a repeat low transverse . Postoperative course was uneventful. She denies nausea, vomiting, chest pain, shortness of breath or calf pain. Patient will be discharged home postoperative day #2 in stable condition to follow-up with me in one week. Plan - Discharge Summary New Discharge Prescriptions: New Ibuprofen [Motrin] 600 mg PO Q6H #40 tab oxyCODONE HCL [OxyIR] 5 mg PO Q4HR PRN #18 tab PRN Reason: Pain Scale 4 - 6 Discharge Medication List Ibuprofen [Motrin] 600 mg PO Q6H #40 tab 06/24/22 [Rx] oxyCODONE HCL [OxyIR] 5 mg PO Q4HR PRN #18 tab 06/24/22 [Rx] Follow up Appointment(s)/Referral(s): Luiza Conway DO [Doctor of Osteopathic Medicine] - 1 Week Discharge Disposition: HOME SELF-CARE
[2022-06-24 09:46] VITALS: BP 128/78; PULSE 89
[2022-06-24] MEDS: SENNOSIDES-DOCUSATE SODIUM 1 EACH TAB PO SCH (09:50)
== END 2022-06-24 09:30 | disposition home or self-care (01) | DRG 787 ==
LOC: FBPOP 10:07 → 4FBP 11:07
PROVIDERS: ADMIT Obstetrics & Gynecology; ATTEND Obstetrics & Gynecology
PROC: 4A0HXCZ Measurement of Products of Conception, Cardiac Rate, External Approach (ICD-10-PCS; 2022-06-22)
PROC: 10D00Z1 Extraction of Products of Conception, Low, Open Approach (ICD-10-PCS; principal; 2022-06-22 12:00)
DX: O34.211 Maternal care for low transverse scar from previous cesarean delivery (principal); O36.4XX0 Maternal care for intrauterine death, not applicable or unspecified; O99.354 Diseases of the nervous system complicating childbirth; O36.5930 Maternal care for other known or suspected poor fetal growth, third trimester, not applicable or unspecified; O77.0 Labor and delivery complicated by meconium in amniotic fluid; Z37.0 Single live birth; F17.210 Nicotine dependence, cigarettes, uncomplicated; F32.A Depression, unspecified; F41.9 Anxiety disorder, unspecified; M79.7 Fibromyalgia; O99.334 Smoking (tobacco) complicating childbirth; O99.344 Other mental disorders complicating childbirth; Z37.1 Single stillbirth; Z3A.35 35 weeks gestation of pregnancy; Z88.1 Allergy status to other antibiotic agents; Z88.0 Allergy status to penicillin; Z88.6 Allergy status to analgesic agent
CPT/HCPCS: 76815; 85025; 86850; 86900; 86901; 88307; 99213

== ENCOUNTER → 2023-01-10 | Outpatient (CLI) | payer OTHER | END | disposition home or self-care (01) | LOC: LABWHC1 14:45 | PROVIDERS: ATTEND Obstetrics & Gynecology | DX: Z53.9 Procedure and treatment not carried out, unspecified reason (principal) ==

== ENCOUNTER 2023-08-04 13:15 | Emergency (ER) | payer OTHER ==
--- NOTE | 2023-08-04 14:06 | ED ---
URI HPI - General Source: patient, RN notes reviewed Mode of arrival: ambulatory Limitations: no limitations <Maricruz Segura - Last Filed: 08/04/23 14:04> <Pedro Valenzuela - Last Filed: 08/04/23 14:57> - General Chief Complaint: Upper Respiratory Infection Stated Complaint: covid+ 20 wks preg Time Seen by Provider: 08/04/23 14:04 - History of Present Illness Initial Comments: This is a 32-year-old female who presents to the emergency department for coughing, congestion, vomiting, and abdominal pain. Patient was exhibiting upper respiratory symptoms and tested positive for Covid yesterday. This morning she began vomiting and reports associated lower abdominal and back pain. She is 20 weeks . Denies any vaginal bleeding or discharge. (Maricruz Segura) - Related Data Previous Rx's Medication Instructions Recorded Ibuprofen [Motrin] 600 mg PO Q6H #40 tab 06/24/22 oxyCODONE HCL [OxyIR] 5 mg PO Q4HR PRN #18 tab 06/24/22 Allergies Allergy/AdvReac Type Severity Reaction Status Date / Time amoxicillin Allergy Unknown Verified 08/04/23 13:45 aspirin Allergy Swelling Verified 08/04/23 13:45 Penicillins Allergy Swelling Verified 08/04/23 13:45 Review of Systems ROS Other: All systems not noted in ROS Statement are negative. <Maricruz Segura - Last Filed: 08/04/23 14:04> ROS Other: All systems not noted in ROS Statement are negative. <Pedro Valenzuela - Last Filed: 08/04/23 14:57> ROS Statement: Those systems with pertinent positive or pertinent negative responses have been documented in the HPI. Past Medical History Past Medical History: No Reported History Additional Past Medical History / Comment(s): Fibromyalgia. History of Any Multi-Drug Resistant Organisms: None Reported Past Surgical History: Appendectomy, Section Past Anesthesia/Blood Transfusion Reactions: No Reported Reaction Past Psychological History: Anxiety, Depression Smoking Status: Current every day smoker Past Alcohol Use History: None Reported Past Drug Use History: Marijuana, Methamphetamine - Past Family History Father Family Medical History: Hypertension <Maricruz Segura - Last Filed: 08/04/23 14:04> General Exam Limitations: no limitations <Maricruz Segura Last Filed: 08/04/23 14:04> General appearance: alert, in no apparent distress Head exam: Present: atraumatic, normocephalic Eye exam: Present: normal appearance, PERRL ENT exam: Present: mucous membranes moist Neck exam: Present: normal inspection. Absent: tenderness, meningismus Respiratory exam: Present: normal lung sounds bilaterally. Absent: respiratory distress, wheezes GI/Abdominal exam: Present: soft. Absent: distended Extremities exam: Present: normal inspection, normal capillary refill. Absent: calf tenderness Neurological exam: Present: alert, oriented X3, CN II-XII intact. Absent: motor sensory deficit Psychiatric exam: Present: normal affect, normal mood Skin exam: Present: warm, dry, intact. Absent: cyanosis, diaphoretic <Pedro Valenzuela - Last Filed: 08/04/23 14:57> - General Exam Comments Initial Comments: Visual Physical Exam Vital signs reviewed General: Well-appearing, nontoxic, no acute distress. Head: Normocephalic, atraumatic Eyes: PERRLA, EOMI ENT: Airway patent Chest: Nonlabored breathing Skin: No visual rash, normal skin tone Neuro: Alert and oriented 3 Musculoskeletal: No gross abnormalities (Maricruz Segura) Course Vital Signs 08/04/23 13:36 Temperature 99.9 F H Pulse Rate 109 H Respiratory 22 Rate Blood Pressure 107/66 O2 Sat by Pulse 98 Oximetry Medical Decision Making <Maricruz Segura - Last Filed: 08/04/23 14:04> <Pedro Valenzuela - Last Filed: 08/04/23 14:57> - Medical Decision Making I performed the QuickNote portion of this chart. Signed Maricruz Segura PA-C. (Maricruz Segura) Was pt. sent in by a medical professional or institution (MAGI Gilbert, INSTRUMENT REPAIR SUPERVISOR, urgent care, hospital, or half-way...) When possible be specific @ -No Did you speak to anyone other than the patient for history (EMS, parent, family, police, friend...)? What history was obtained from this source @ -No Did you review nursing and triage notes (agree or disagree)? Why? @ -I reviewed and agree with nursing and triage notes Were old charts reviewed (outside hosp., previous admission, EMS record, old EKG, old radiological studies, urgent care reports/EKG's, half-way records)? Report findings @ -No old charts were reviewed Differential Diagnosis (chest pain, altered mental status, abdominal pain women, abdominal pain men, vaginal bleeding, weakness, fever, dyspnea, syncope, headache, dizziness, GI bleed, back pain, seizure, CVA, palpatations, mental health, musculoskeletal)? @ -Coronavirus EKG interpreted by me (3pts min.). @ -As above X-rays interpreted by me (1pt min.). @ -None done CT interpreted by me (1pt min.). @ -None done U/S interpreted by me (1pt. min.). @ -None done What testing was considered but not performed or refused? (CT, X-rays, U/S, labs)? Why? @ -None What meds were considered but not given or refused? Why? @ -None Did you discuss the management of the patient with other professionals (professionals i.e. , PA, INSTRUMENT REPAIR SUPERVISOR, lab, RT, psych nurse, social work professor, tar heel, teacher, environmental protection officer, case finisher)? Give summary @ -No Was smoking cessation discussed for >3mins.? @ -No Was critical care preformed (if so, how long)? @ -No Were there social determinants of health that impacted care today? How? (Homelessness, low income, unemployed, alcoholism, drug addiction, transportation, low edu. Level, literacy, decrease access to med. care, shelter, rehab)? @ -No Was there de-escalation of care discussed even if they declined (Discuss DNR or withdrawal of care, Hospice)? DNR status @ -No What co-morbidities impacted this encounter? (DM, HTN, Smoking, COPD, CAD, Cancer, CVA, ARF, Chemo, Hep., AIDS, mental health diagnosis, sleep apnea, morbid obesity)? @ -None Was patient admitted / discharged? Hospital course, mention meds given and route, prescriptions, significant lab abnormalities, going to OR and other pertinent info. @ 32-year-old approximate 20 week female with cold symptoms, diagnosed with coronavirus yesterday. Patient well-appearing stable vitals. heart tones in the 140s to 160 range this was obtained by the obstetric nurse. Patient will maintain oral hydration at home, take Tylenol for fever. She is instructed to take Benadryl, zinc, vitamin C. Undiagnosed new problem with uncertain prognosis? @ -No Drug Therapy requiring intensive monitoring for toxicity (Heparin, Nitro, Insulin, Cardizem)? @ -No Were any procedures done? @ -No Diagnosis/symptom? @ -[COVID-19 Acute, or Chronic, or Acute on Chronic? @ -Acute Uncomplicated (without systemic symptoms) or Complicated (systemic symptoms)? @ -default Side effects of treatment? @ -No Exacerbation, Progression, or Severe Exacerbation? @ -No Poses a threat to life or bodily function? How? (Chest pain, [place], [place], pneumonia, PE, COPD, DKA, ARF, appy, cholecystitis, CVA, Diverticulitis, Homicidal, Suicidal, threat to staff... and all critical care pts) @ Low risk at this time (Pedro Valenzuela) Disposition <Maricruz Segura - Last Filed: 08/04/23 14:04> Is patient prescribed a controlled substance at d/c from ED?: No Time of Disposition: 14:52 <Pedro Valenzuela - Last Filed: 08/04/23 14:57> Clinical Impression: COVID-19 Disposition: HOME SELF-CARE Condition: Fair Instructions (If sedation given, give patient instructions): COVID-19 (Coronavirus Disease 2019) (ED) Referrals: Efra Gonzalez MD [STAFF PHYSICIAN] - 1-2 days
[2023-08-04 16:26] VITALS: BP 112/74; PULSE 102; RESP 18; TEMP 99.6
== END 2023-08-04 15:20 | disposition home or self-care (01) ==
LOC: EC 13:15
DX: O98.512 Other viral diseases complicating pregnancy, second trimester (principal); U07.1 COVID-19; O99.332 Smoking (tobacco) complicating pregnancy, second trimester; F17.200 Nicotine dependence, unspecified, uncomplicated; O99.322 Drug use complicating pregnancy, second trimester; F12.90 Cannabis use, unspecified, uncomplicated; F15.90 Other stimulant use, unspecified, uncomplicated; Z88.0 Allergy status to penicillin; Z88.6 Allergy status to analgesic agent; Z3A.20 20 weeks gestation of pregnancy
CPT/HCPCS: 99283

== ENCOUNTER 2023-11-01 12:55 | Outpatient (CLI) | payer OTHER ==
[2023-11-01 14:02] VITALS: BP 122/79; PULSE 83; RESP 16; TEMP 96.6
== END 2023-11-01 14:00 ==
LOC: FBPOP 12:55
PROVIDERS: ATTEND Obstetrics & Gynecology
DX: O36.5931 Maternal care for other known or suspected poor fetal growth, third trimester, fetus 1 (principal); O99.333 Smoking (tobacco) complicating pregnancy, third trimester; F17.200 Nicotine dependence, unspecified, uncomplicated; Z3A.32 32 weeks gestation of pregnancy; Z88.0 Allergy status to penicillin; Z88.6 Allergy status to analgesic agent; Z91.030 Bee allergy status; Z91.048 Other nonmedicinal substance allergy status
CPT/HCPCS: 59025

== ENCOUNTER 2023-11-08 19:53 | Outpatient (CLI) | payer OTHER ==
[2023-11-08] MEDS: BETAMET ACET-BETAMETH SOD PHOS 6 MG/ML MDV IM SCH (20:30)
[2023-11-08 21:01] VITALS: BP 136/74; PULSE 90; RESP 16; TEMP 97.2
== END 2023-11-08 20:38 | disposition home or self-care (01) ==
LOC: FBPOP 19:53
PROVIDERS: ATTEND Obstetrics & Gynecology Obstetrics
DX: O36.5930 Maternal care for other known or suspected poor fetal growth, third trimester, not applicable or unspecified (principal); O99.333 Smoking (tobacco) complicating pregnancy, third trimester; Z3A.33 33 weeks gestation of pregnancy; Z88.0 Allergy status to penicillin; Z88.6 Allergy status to analgesic agent; Z91.030 Bee allergy status; F17.200 Nicotine dependence, unspecified, uncomplicated
CPT/HCPCS: 59025; 96372; G0463; J0702; 99214

== ENCOUNTER 2023-11-09 20:25 | Outpatient (CLI) | payer OTHER ==
[2023-11-09] MEDS: BETAMET ACET-BETAMETH SOD PHOS 6 MG/ML MDV IM SCH (20:35)
== END 2023-11-09 20:36 | disposition home or self-care (01) ==
LOC: FBPOP 20:25
PROVIDERS: ATTEND Obstetrics & Gynecology Obstetrics
DX: O26.893 Other specified pregnancy related conditions, third trimester (principal); Z29.89 Encounter for other specified prophylactic measures; O24.419 Gestational diabetes mellitus in pregnancy, unspecified control; O99.333 Smoking (tobacco) complicating pregnancy, third trimester; F17.200 Nicotine dependence, unspecified, uncomplicated; Z3A.33 33 weeks gestation of pregnancy; Z88.0 Allergy status to penicillin; Z88.6 Allergy status to analgesic agent; Z91.030 Bee allergy status
CPT/HCPCS: 96372; J0702; 99213

== ENCOUNTER 2023-11-15 19:31 | Outpatient (CLI) | payer OTHER ==
[2023-11-15 21:37] VITALS: BP 139/81; PULSE 81; RESP 16; TEMP 97.4
== END 2023-11-15 20:10 | disposition home or self-care (01) ==
LOC: FBPOP 19:31
PROVIDERS: ATTEND Obstetrics & Gynecology
DX: O36.5930 Maternal care for other known or suspected poor fetal growth, third trimester, not applicable or unspecified (principal); O99.333 Smoking (tobacco) complicating pregnancy, third trimester; F17.200 Nicotine dependence, unspecified, uncomplicated; Z88.0 Allergy status to penicillin; Z91.030 Bee allergy status; Z88.6 Allergy status to analgesic agent; Z3A.34 34 weeks gestation of pregnancy
CPT/HCPCS: 59025

== ENCOUNTER → 2023-11-19 | Outpatient (CLI) | payer OTHER ==
[2023-11-19 18:16] LABS: HCT 28.6 % (37.2-46.3); HGB 8.4 g/dL (12.0-15.0); MCHC 29.4 g/dL (32.0-37.0); MCV 74.9 FL (80.0-97.0); Mean Platelet Volume 11.1 FL (9.5-12.2); NRBC Per 100 WBC 0.07 X 10*3/uL (0.00-0.01); Platelet Count 241 X 10*3/uL (140-440); RBC 3.82 X 10*6/uL (4.10-5.20); RDW 16.7 % (11.5-14.5)
[2023-11-19 18:38] LABS: Uric Acid 6.1 mg/dL (2.9-7.7)
== END | disposition home or self-care (01) ==
LOC: LABWHC1 14:42
PROVIDERS: ATTEND Obstetrics & Gynecology
DX: O12.10 Gestational proteinuria, unspecified trimester (principal); Z3A.00 Weeks of gestation of pregnancy not specified
CPT/HCPCS: 36415; 83615; 84450; 84460; 84550; 85027

== ENCOUNTER 2023-11-22 19:34 | Outpatient (CLI) | payer OTHER ==
[2023-11-22] MEDS: LABETALOL 100 MG TAB PO STA (20:24)
[2023-11-22 20:51] LABS: Creatinine,Urine Random 198.7 mg/dL
[2023-11-22 20:53] LABS: Creatinine,Urine Random 198.3 mg/dL
[2023-11-22 20:58] LABS: Protein/Creatinine Ratio,Urine 2.542
[2023-11-22 21:09] LABS: Appearance,Urine Cloudy (Clear); Bacteria,Urine Rare /hpf; Bilirubin,Urine Negative (Negative); Blood,Urine Negative (Negative); Color,Urine Yellow; Glucose,Urine (UA) Negative (Negative); Hyaline Casts,Urine 1 /lpf (0-2); Ketones,Urine Negative (Negative); Leukocyte Esterase,Urine Negative (Negative); Mucus,Urine Occasional /hpf; Nitrite,Urine Negative (Negative); Protein,Urine 2+ (Negative); RBC,Urine <1 /hpf (0-5); Specific Gravity,Urine 1.024 (1.001-1.035); Squamous Epithelial Cell,Urine 8 /hpf (0-4); Urobilinogen,Urine <2.0 mg/dL (<2.0); WBC,Urine 1 /hpf (0-5)
[2023-11-22 22:02] VITALS: BP 148/81; PULSE 77; RESP 18; TEMP 97.9
== END 2023-11-22 21:45 ==
LOC: FBPOP 19:34
PROVIDERS: ATTEND Obstetrics & Gynecology
DX: O36.5931 Maternal care for other known or suspected poor fetal growth, third trimester, fetus 1 (principal); O99.333 Smoking (tobacco) complicating pregnancy, third trimester; F17.200 Nicotine dependence, unspecified, uncomplicated; Z3A.35 35 weeks gestation of pregnancy; Z88.0 Allergy status to penicillin; Z88.6 Allergy status to analgesic agent; Z91.030 Bee allergy status; Z91.048 Other nonmedicinal substance allergy status
CPT/HCPCS: 59025; 82570; 84156; 81001; G0463; 99215

== ENCOUNTER 2023-11-25 11:54 | Outpatient (CLI) | payer OTHER ==
[2023-11-25 13:30] VITALS: BP 145/69; PULSE 79; RESP 18; TEMP 97
== END 2023-11-25 13:00 | disposition home or self-care (01) ==
LOC: FBPOP 11:54
PROVIDERS: ATTEND Obstetrics & Gynecology
DX: O36.5930 Maternal care for other known or suspected poor fetal growth, third trimester, not applicable or unspecified (principal); O99.333 Smoking (tobacco) complicating pregnancy, third trimester; F17.200 Nicotine dependence, unspecified, uncomplicated; Z88.0 Allergy status to penicillin; Z88.6 Allergy status to analgesic agent; Z91.030 Bee allergy status; Z3A.36 36 weeks gestation of pregnancy
CPT/HCPCS: 59025

== ENCOUNTER 2023-11-26 05:16 | Inpatient (IN) | payer OTHER ==
[2023-11-21 16:06] VITALS: BMI 44.2
[2023-11-26] MEDS: LACTATED RINGERS 1,000 ML IV SCH ×2 (05:30→17:26)
[2023-11-26] MEDS ORDERED: METHYLERGONOVINE 0.2 MG/ML 1 ML AMP IM PRN (05:34)
[2023-11-26] MEDS ORDERED: OXYTOCIN 10 UNIT/ML 1 ML VIAL IM PRN (05:34)
[2023-11-26] MEDS ORDERED: CARBOPROST TROMETHAMINE 250 MCG/ML 1 ML AMP IM PRN (05:34)
[2023-11-26] MEDS ORDERED: LIDOCAINE 0.5% (PF) 5 MG/ML (50 ML SDV) SQ PRN (05:34)
[2023-11-26] MEDS ORDERED: TRANEXAMIC 1,000 MG/100ML-NACL 1,000 MG in EMPTY BAG 1 BAG IV PRN (05:34)
[2023-11-26] MEDS ORDERED: miSOPROStoL 200 MCG TAB PO PRN (05:34)
[2023-11-26] MEDS ORDERED: TERBUTALINE 1 MG/ML VIAL SQ PRN (05:34)
[2023-11-26 05:44] LABS: Anisocytosis Slight; Basophils % (A) 0 %; Eosinophils # (A) 0.1 k/uL (0-0.7); Eosinophils % (A) 1 %; HCT 30.4 % (34.0-46.0); HGB 9.3 gm/dL (11.4-16.0); Hypochromasia Marked; Lymphocytes # (A) 2.1 k/uL (1.0-4.8); Lymphocytes % (A) 27 %; MCH 23.2 pg (25.0-35.0); MCHC 30.6 g/dL (31.0-37.0); MCV 75.7 fL (80.0-100.0); Mean Platelet Volume 8.4; Microcytosis Slight; Monocytes # (A) 0.3 k/uL (0-1.0); Monocytes % (A) 4 %; Neutrophils # (A) 5.1 k/uL (1.3-7.7); Neutrophils % (A) 65 %; Platelet Count 241 k/uL (150-450); RBC 4.02 m/uL (3.80-5.40); RDW 17.9 % (11.5-15.5); WBC 7.8 k/uL (3.8-10.6)
[2023-11-26] MEDS ORDERED: OXYTOCIN 30 UNITS/500 ML NS 30 UNIT in SALINE 1 500ML.BAG IV SCH ×2 (05:45→08:45)
[2023-11-26] MEDS: CITRIC ACID-SODIUM CITRATE 15 ML CUP PO ONE (07:22)
[2023-11-26] MEDS ORDERED: OXYTOCIN 30 UNITS/500 ML NS BAG IV ONE (07:47)
[2023-11-26] MEDS ORDERED: KETOROLAC 30 MG/ML 1 ML VIAL ONE (07:47)
[2023-11-26] MEDS ORDERED: MORPHINE SULFATE (PF) 0.3 MG/0.3 ML SYR ONE (07:47)
[2023-11-26] MEDS ORDERED: fentaNYL (PF) 50 MCG/ML 2 ML AMP ONE (07:47)
[2023-11-26] MEDS ORDERED: ONDANSETRON 4 MG/2 ML VIAL ONE (07:47)
[2023-11-26] MEDS ORDERED: PHENYLEPHRINE-0.9% NACL SYG 1,000 MCG/10 ML SYRINGE ONE (07:47)
[2023-11-26] MEDS ORDERED: diphenhydrAMINE 50 MG/ML 1 ML VIAL IVP PRN ×2 (08:45)
[2023-11-26] MEDS ORDERED: ZOLPIDEM 5 MG TAB PO PRN (08:45)
[2023-11-26] MEDS ORDERED: ONDANSETRON 4 MG/2 ML VIAL IVP PRN (08:45)
[2023-11-26] MEDS ORDERED: diphenhydrAMINE 25 MG CAP PO PRN (08:45)
[2023-11-26] MEDS ORDERED: diphenhydrAMINE 50 MG CAP PO PRN (08:45)
[2023-11-26] MEDS ORDERED: NALOXONE 0.4 MG/ML 1 ML VIAL IV PRN (08:45)
[2023-11-26] MEDS ORDERED: METOCLOPRAMIDE 5 MG/ML 2 ML VIAL IVP PRN (08:45)
--- NOTE | 2023-11-26 08:53 | P.HPOB ---
History of Present Illness H&P Date: 11/26/23 Chief Complaint: 36-1/7 weeks, previous section x4, IUGR The patient is a 33-year-old 5 para 3-1-0-3 admitted at 36-1/7 weeks as established by last menstrual period and confirmed by 15-week ultrasound. She is admitted for repeat low-transverse section with intraoperative bilateral tubal occlusion using Filshie clips having had a history of previous 4 sections. Her last section occurred at 35 weeks at which time she was found with a intrauterine demise. This has been complicated by gestational diabetes for which her blood sugars have remained relatively stable throughout. She additionally was noted at her anatomy ultrasound to have a circumvallate placenta. She was also diagnosed at 32 weeks by her routine growth exam with intrauterine growth restriction. Since 32 weeks she has had twice weekly nonstress testing with weekly biophysical profile and amniotic fluid index and Doppler studies. All of these measures were reassuring until approximately 2 weeks ago at which time she began to have cord Doppler studies that were no longer reassuring but continued to have a biophysical profile of 10 out of 10 weekly with normal fluid volumes. As a result of the change in cord Doppler studies, steroids were given at approximately 33 to 34 weeks of gestation. The decision was made to proceed with delivery at 36 weeks rather than 37. She additionally, over the last roughly 1 week, has elevating blood pressures which have required addition of labetalol 100 mg twice daily. On labor delivery, all signs are reassuring with a category 1 heart rate tracing. Group B strep status has not been completed. Obstetrical history: 5 para 3-1-0-3 with 3 term deliveries and 1 delivery for demise. Current statistics are listed in history of present illness. EDC of 12/23/2023 was established by last menstrual period and confirmed by 15-week ultrasound. Laboratory workup demonstrates a blood type of O+ with a negative antibody screen. Rubella status is immune. The remainder of the laboratory workup was within normal limits. Early Glucola was normal however second trimester Glucola was elevated at 200 making the diagnosis of gestational diabetes. Group B strep status has not yet been performed as she was delivered at 36 weeks. Gynecologic history: Unremarkable with no history of any infections to include STDs. Review of Systems Review of systems is confined to history of present illness. Past Medical History Past Medical History: No Reported History Additional Past Medical History / Comment(s): Fibromyalgia. History of Any Multi-Drug Resistant Organisms: None Reported Past Surgical History: Appendectomy, Section Past Anesthesia/Blood Transfusion Reactions: No Reported Reaction Past Psychological History: Anxiety, Depression Smoking Status: Former smoker Past Alcohol Use History: None Reported Additional Past Alcohol Use History / Comment(s): Quit smoking May 2023. Past Drug Use History: Marijuana, Methamphetamine Additional Drug Use History / Comment(s): Hx daily Marijuana use, none since 6th month of preganancy. No Methamphetamines since October 31, 2021. - Past Family History Father Family Medical History: Hypertension Mother Family Medical History: COPD Additional Family Medical History / Comment(s): . Medications and Allergies Home Medications Medication Instructions Recorded Confirmed Type Vit No.179/Iron/Folic 1 tab PO DAILY 11/01/23 11/26/23 History [ Tablet] Labetalol [Trandate] 100 mg PO BID 11/25/23 11/26/23 History Allergies Allergy/AdvReac Type Severity Reaction Status Date / Time amoxicillin Allergy Severe Anaphylaxis Verified 11/25/23 12:35 Penicillins Allergy Severe Anaphylaxis Verified 11/25/23 12:35 aspirin Allergy Swelling Verified 11/25/23 12:35 bee pollen Allergy Rash/Hives Verified 11/25/23 12:35 Exam Vital Signs Temp Pulse Resp BP Pulse Ox 11/26/23 05:27 96.0 F L 83 16 143/87 96 Intake and Output 11/25/23 11/26/23 11/26/23 22:59 06:59 14:59 Other: # Voids 1 Weight 118.841 kg In general, this is a well-developed, moderately obese white female in no acute distress. Her heart has a regular rhythm and rate without murmur. Her lungs are clear to auscultation bilaterally in all moon. Her abdomen is gravid, nondistended, has normal active bowel sounds, soft, nontender, and without any palpable masses aside from the uterine fundus. Her extremities are without any cyanosis, clubbing, or significant edema and are nontender to palpation bilaterally. Digital cervical examination is deferred. Results Result Diagrams: 11/26/23 05:30 Abnormal Lab Results - Last 24 Hours (Table) 11/26/23 Range/Units 05:30 Hgb 9.3 L (11.4-16.0) gm/dL Hct 30.4 L (34.0-46.0) % MCV 75.7 L (80.0-100.0) fL MCH 23.2 L (25.0-35.0) pg MCHC 30.6 L (31.0-37.0) g/dL RDW 17.9 H (11.5-15.5) % Assessment and Plan (1) Family planning Current Visit: Yes Status: Acute Code(s): Z30.09 - ENCOUNTER FOR OTH GENERAL CNSL AND ADVICE ON CONTRACEPTION SNOMED Code(s): 117178783 (2) Previous section Current Visit: Yes Status: Acute Code(s): Z98.891 - HISTORY OF UTERINE SCAR FROM PREVIOUS SURGERY SNOMED Code(s): 807340675 (3) Intrauterine growth retardation in Current Visit: Yes Status: Acute Code(s): O36.5990 - MATERN CARE FOR OTH OR SUSP POOR FETL GRTH, UNSP TRI, UNSP SNOMED Code(s): 661321105 (4) 36 to 37 weeks gestation of Current Visit: Yes Status: Acute Code(s): XMJ5280 - SNOMED Code(s): 935606997 Plan: The patient is admitted for repeat low-transverse section with intraoperative bilateral tubal occlusion using Filshie clips. The risks and complications of the procedure been thoroughly discussed and she has understood and agreed to proceed. She does understand the permanent nature of tubal ligation.
--- NOTE | 2023-11-26 09:00 | P.OP ---
Date of Procedure: 11/26/23 Preoperative Diagnosis: #1. 36-1/7 weeks, previous section x5 #2. Intrauterine growth restriction #3. Undesired fertility Postoperative Diagnosis: Same Procedure(s) Performed: #1. Repeat low-transverse section #2. Intraoperative bilateral tubal occlusion with Filshie clips Anesthesia: spinal Surgeon: Efra Gonzalez Online Services Manager #1: Luiza Conway Estimated Blood Loss (ml): 370 IV fluids (ml): 1,300 Urine output (ml): 50 Pathology: other (Senta) Condition: stable Disposition: floor Operative Findings: See dictated H&P for conditions leading to early section. The patient was taken to the operating where she was delivered of a viable 4 pound 14 ounce baby boy with Apgars of 9 at 1 minute and 9 at 5 minutes in the occiput anterior position. There was a loose nuchal cord reduced on the field prior to delivery of the . The placenta was delivered manually, intact, and grossly normal with a grossly normal three-vessel cord. The uterus, tubes, and ovaries were essentially normal to inspection. There was no concern for bladder injury at any time. There was a moderate amount of scarring at the level of the rectus muscles and fascia. A Filshie clip was firmly placed across the isthmic portion of each fallopian tube. Description of Procedure: Patient was prepped and draped in usual fashion after spinal anesthesia was administered by the anesthesiologist. A Pfannenstiel incision was made through pre-existing scar and extended into the abdominal cavity with minimal difficulty. There was some scarring at the level of the rectus muscles where they had been previously sewn together. Once entering the abdomen, the bladder was relatively distal but was nevertheless reflected distally. A 2 cm incision was made in the transverse plane of the lower uterine segment after the uterus at which time clear fluid was noted. The incision was extended in both directions using the bandage scissors. The head was delivered up and through the incision where the nose and mouth were thoroughly suctioned. A nuchal cord was reduced and the infant delivered onto the field where the cord was doubly clamped, cut, and the passed for resuscitative measures with weight and Apgars as noted above. cord blood was collected per protocol. The placenta was delivered manually and intact as noted above. The uterus was exteriorized and the anterior cavity of the uterus was swept of any remaining placental or membranous fragments. The margins of the uterine incision was grasped with Davis clamps and the incision closed in a single running locking stitch of 0 chromic catgut from margin to margin. Hemostasis appeared to be excellent. The posterior cul-de-sac was suctioned with a guard and, after reaffirming the patient's desire for permanent sterilization, a Filshie clip was placed across the isthmic portion of each fallopian tube approximately 2 cm from the cornu where it was firmly affixed. The uterus was replaced within the abdominal cavity and the gutters were swept of any remaining blood, fluid, or clot. The incision was reexamined and found to be hemostatic. The parietal peritoneum was loosely reapproximated and the layer of muscles examined and found to be hemostatic. The fascia was closed with 2 running stitches of 0 Vicryl proceeding from the lateral margins to the midpoint. The subcutaneous tissues were irrigated, made hemostatic with the Bovie, and reapproximated with a running stitch of 3-0 plain catgut. The skin was reapproximated with a running subcuticular stitch of 4-0 Vicryl followed by half-inch Steri-Strips placed with Mastisol. Quantitative blood loss for the case was 370 mL. All sponge, instrument, and needle counts were correct. There were no complications. The patient tolerated the procedure well and proceeded to the recovery room in stable condition. Both mother and infant are resting comfortably in recovery.
[2023-11-26] MEDS: SIMETHICONE 80 MG CHEWABLE PO PRN (11:55)
[2023-11-26] MEDS: ACETAMINOPHEN TAB 500 MG TAB PO SCH (16:12)
[2023-11-26] MEDS: IBUPROFEN 600 MG TAB PO SCH (17:29)
[2023-11-26] MEDS: LABETALOL 100 MG TAB PO SCH (17:30)
[2023-11-26] MEDS: KETOROLAC 15 MG/ML 1 ML VIAL IVP PRN (18:35)
[2023-11-26] MEDS: SENNOSIDES-DOCUSATE SODIUM 1 EACH TAB PO SCH (21:14)
--- NOTE | 2023-11-27 05:21 | P.PN ---
Progress Note - Text Progress Note Date: 11/27/23 POD 1 from c section with intrathecal morphine. Patient sleeping comfortably this morning, answered questions but sleepy - doing well, pain controlled, 10/05. Able to ambulate, minor pruritis. Able to micturate and passing gas. No mental status changes. Denies chest pain or shortness of breath. Plan to go home today
[2023-11-27 07:50] LABS: Anisocytosis Slight; Basophils % (A) 0 %; Eosinophils # (A) 0.1 k/uL (0-0.7); Eosinophils % (A) 1 %; HCT 27.7 % (34.0-46.0); HGB 8.3 gm/dL (11.4-16.0); Hypochromasia Marked; Lymphocytes # (A) 1.2 k/uL (1.0-4.8); Lymphocytes % (A) 18 %; MCH 22.7 pg (25.0-35.0); MCHC 29.8 g/dL (31.0-37.0); MCV 76.1 fL (80.0-100.0); Mean Platelet Volume 7.5; Microcytosis Slight; Monocytes # (A) 0.2 k/uL (0-1.0); Monocytes % (A) 3 %; Neutrophils # (A) 5.2 k/uL (1.3-7.7); Neutrophils % (A) 75 %; Platelet Count 206 k/uL (150-450); RBC 3.64 m/uL (3.80-5.40); RDW 17.8 % (11.5-15.5); WBC 6.9 k/uL (3.8-10.6)
--- NOTE | 2023-11-27 08:22 | P.PNOBGPC ---
Subjective - Subjective Patient reports: Reports appetite normal, Reports voiding normally, Reports pain well controlled, Reports ambulating normally : doing well, in NICU (Requiring high flow oxygen.) Objective - Vital Signs Latest vital signs: Vital Signs Temp Pulse Resp BP Pulse Ox 11/27/23 08:00 98.6 F 88 15 134/87 97 11/27/23 04:05 98.4 F 89 16 113/79 96 11/27/23 00:00 98.0 F 78 16 136/79 11/26/23 16:30 97.9 F 78 16 139/85 96 11/26/23 13:58 97.6 F 83 16 142/89 96 11/26/23 12:06 97.8 F 75 16 138/81 11/26/23 10:49 70 16 145/75 11/26/23 10:34 68 16 137/69 11/26/23 10:19 76 16 138/78 100 11/26/23 10:04 76 16 134/70 100 11/26/23 09:44 69 16 116/77 100 11/26/23 09:34 78 16 149/78 11/26/23 09:19 70 16 146/76 100 11/26/23 09:03 66 16 143/70 99 11/26/23 08:49 96.8 F L 81 16 161/81 98 Intake and Output 11/26/23 11/27/23 11/27/23 22:59 06:59 14:59 Intake Total 100 Output Total 1100 500 Balance -1000 -500 Intake: Oral 100 Output: Urine 1100 500 Other: # Voids 1 2 # Bowel Movements 0 - Exam Extremities: Present: normal Abdomen: Present: normal appearance, soft. Absent: distention, tenderness Incision: Present: normal, dry, intact Uterus: Present: normal, firm (The uterine fundus is tonic and appropriately tender below the umbilicus.) - Labs Labs: Abnormal Lab Results - Last 24 Hours (Table) 11/27/23 Range/Units 07:26 RBC 3.64 L (3.80-5.40) m/uL Hgb 8.3 L (11.4-16.0) gm/dL Hct 27.7 L (34.0-46.0) % MCV 76.1 L (80.0-100.0) fL MCH 22.7 L (25.0-35.0) pg MCHC 29.8 L (31.0-37.0) g/dL RDW 17.8 H (11.5-15.5) % Assessment and Plan (1) Family planning Current Visit: Yes Status: Acute Code(s): Z30.09 - ENCOUNTER FOR OTH GENERAL CNSL AND ADVICE ON CONTRACEPTION SNOMED Code(s): 420184893 (2) Previous section Current Visit: Yes Status: Acute Code(s): Z98.891 - HISTORY OF UTERINE SCAR FROM PREVIOUS SURGERY SNOMED Code(s): 968930437 (3) Intrauterine growth retardation in Current Visit: Yes Status: Acute Code(s): O36.5990 - MATERN CARE FOR OTH OR SUSP POOR FETL GRTH, UNSP TRI, UNSP SNOMED Code(s): 818136403 (4) 36 to 37 weeks gestation of Current Visit: Yes Status: Acute Code(s): QFY3074 - SNOMED Code(s): 587413525 (5) S/P section Current Visit: Yes Status: Acute Code(s): Z98.891 - HISTORY OF UTERINE SCAR FROM PREVIOUS SURGERY SNOMED Code(s): 063138505 Plan: Continue routine and postoperative care. I have encouraged the patient ambulate in the hallways routinely. She is already tolerating regular diet. The length of her stay will be quite dependent on the status of the in the nursery.
[2023-11-27] MEDS: HYDROCORTISONE 2.5% RECTAL CREAM 30 GM TUBE RECTAL PRN (08:49)
--- NOTE | 2023-11-28 09:33 | P.PNOBGPC ---
Subjective - Subjective Patient reports: Reports appetite normal, Reports voiding normally, Reports pain well controlled, Reports ambulating normally : doing well, in NICU (Significant improvement with no further need for oxygen supplementation, remains in nursery pending blood cultures on prophylactic antibiotics.) Objective - Vital Signs Latest vital signs: Vital Signs Temp Pulse Resp BP Pulse Ox 11/28/23 08:00 98.2 F 92 16 140/94 97 11/28/23 00:00 98.6 F 91 16 125/70 98 11/27/23 16:00 98.1 F 89 16 129/83 97 Intake and Output 11/27/23 11/28/23 11/28/23 22:59 06:59 14:59 Other: # Voids 2 2 1 # Bowel Movements 1 - Exam Extremities: Present: normal Abdomen: Present: normal appearance, soft. Absent: distention, tenderness Incision: Present: normal, dry, intact Uterus: Present: normal, firm (Uterine fundus is tonic and minimally tender below the umbilicus.) Assessment and Plan (1) Family planning Current Visit: Yes Status: Acute Code(s): Z30.09 - ENCOUNTER FOR OTH GENERAL CNSL AND ADVICE ON CONTRACEPTION SNOMED Code(s): 364582337 (2) Previous section Current Visit: Yes Status: Acute Code(s): Z98.891 - HISTORY OF UTERINE SCAR FROM PREVIOUS SURGERY SNOMED Code(s): 696085440 (3) Intrauterine growth retardation in Current Visit: Yes Status: Acute Code(s): O36.5990 - MATERN CARE FOR OTH OR SUSP POOR FETL GRTH, UNSP TRI, UNSP SNOMED Code(s): 972516983 (4) 36 to 37 weeks gestation of Current Visit: Yes Status: Acute Code(s): JBD2575 - SNOMED Code(s): 496011232 (5) S/P section Current Visit: Yes Status: Acute Code(s): Z98.891 - HISTORY OF UTERINE SCAR FROM PREVIOUS SURGERY SNOMED Code(s): 071771821 Plan: Continue routine and postoperative care. I anticipate the patient remaining in the hospital as long as the infant remains in the nursery or until postoperative day #4 should the remain in the hospital longer. I have encouraged her to ambulate in the hallways routinely. She is otherwise doing well from a postoperative perspective.
[2023-11-29 10:03] VITALS: RESP 16
--- NOTE | 2023-11-29 11:16 | P.DS ---
Providers Date of admission: 11/26/23 05:16 Expected date of discharge: 11/29/23 Attending physician: Efra Gonzalez Primary care physician: Stated None - Discharge Diagnosis(es) (1) Family planning Current Visit: Yes Status: Acute (2) Previous section Current Visit: Yes Status: Acute (3) Intrauterine growth retardation in Current Visit: Yes Status: Acute (4) 36 to 37 weeks gestation of Current Visit: Yes Status: Acute (5) S/P section Current Visit: Yes Status: Acute Hospital Course: The patient is a 33-year-old 5 para 3-1-0-3 admitted at 36-1/7 weeks by good dating parameters. She is admitted for repeat low-transverse section with intraoperative bilateral tubal occlusion using Filshie clips having undergone 4 previous sections. Her last section was done at the time of an intrauterine demise. Her has been complicated by gestational diabetes with relatively good sugar control. She additionally was noted to have a circumvallate placenta. At 32 weeks she was found with intraut erine growth restriction and had twice weekly testing which was reassuring until approximately 34 weeks time at which time she had absent end- diastolic flow on cord Doppler studies which persisted until delivery. She received steroids at the time of that finding. Within the last week of her , she also developed some elevating blood pressures for which she was placed on labetalol 100 mg twice daily. Despite the absent end-diastolic flow, biophysical profile weekly was 10 out of 10 with normal fluid volumes. The decision was made to deliver at 36 weeks. She was taken to the operating room where she underwent a repeat low-transverse section with intraoperative bilateral tubal occlusion in an uncomplicated fashion. Her and postoperative course was unremarkable with vital signs remaining stable and her temperature was afebrile throughout. The infant was taken to the nursery for initially oxygen supplementation as well as prophylactic antibiotics. The patient was deemed stable for discharge on and postoperative day #3 was discharged home to follow-up in the office in 2 weeks for incision check in 6 weeks routinely. Discharge instructions included calling for any significantly increased bleeding, foul-smelling lochia, fever, abdominal pain, perineal complaints, breast complaints, incisional complaints, or anything else that concerned her. She was additionally instructed to have nothing in the vagina for at least 6 weeks time to include intercourse and to abstain from any heavy lifting over the same period of time. She was lastly instructed to do no driving until off of all pain medications or 2 weeks time, whichever came first. She understood her instructions and agrees to follow-up as noted above. Discharge medications included [id number] analgesic pain medications. She is already in possession of a prescription for labetalol 100 mg twice daily which she is to continue until follow-up in the office. She was also provided a prescription for oxycodone 5 mg 1-2 p.o. every 6 hours as needed pain, #20 dispensed with no refills. Maternal blood type is O+ and rubella status is immune. Discharge hemoglobin and hematocrit were 8.3 and 27.7 respectively. As a result, she was instructed to take iron sulfate once daily for at least a month to recoup her hemoglobin. Procedures: #1. Repeat low-transverse section #2. Intraoperative bilateral tubal occlusion with Filshie clips Patient Condition at Discharge: Stable Plan - Discharge Summary Discharge Rx Participant: Yes New Discharge Prescriptions: No Action Vit No.179/Iron/Folic [ Tablet] 1 tab PO DAILY Labetalol [Trandate] 100 mg PO BID Discharge Medication List Vit No.179/Iron/Folic [ Tablet] 1 tab PO DAILY 11/01/23 [History] Labetalol [Trandate] 100 mg PO BID 11/25/23 [History] Follow up Appointment(s)/Referral(s): Efra Gonzalez MD [STAFF PHYSICIAN] - 2 Weeks Discharge Disposition: HOME SELF-CARE
[2023-11-29 16:50] VITALS: BP 129/74; PULSE 94; TEMP 98.3
== END 2023-11-29 16:05 | disposition home or self-care (01) | DRG 539 ==
LOC: 4FBP 05:16
PROVIDERS: ADMIT Obstetrics & Gynecology; ATTEND Obstetrics & Gynecology
PROC: 0UL70CZ Occlusion of Bilateral Fallopian Tubes with Extraluminal Device, Open Approach (ICD-10-PCS; 2023-11-26)
PROC: 10D00Z1 Extraction of Products of Conception, Low, Open Approach (ICD-10-PCS; principal; 2023-11-26 08:05)
DX: O34.211 Maternal care for low transverse scar from previous cesarean delivery (principal); O36.5930 Maternal care for other known or suspected poor fetal growth, third trimester, not applicable or unspecified; O43.113 Circumvallate placenta, third trimester; O99.344 Other mental disorders complicating childbirth; O69.81X0 Labor and delivery complicated by cord around neck, without compression, not applicable or unspecified; O24.429 Gestational diabetes mellitus in childbirth, unspecified control; M79.7 Fibromyalgia; F41.9 Anxiety disorder, unspecified; Z30.2 Encounter for sterilization; O99.73 Diseases of the skin and subcutaneous tissue complicating the puerperium; L29.9 Pruritus, unspecified; Z3A.36 36 weeks gestation of pregnancy; F32.A Depression, unspecified; Z87.891 Personal history of nicotine dependence; Z82.49 Family history of ischemic heart disease and other diseases of the circulatory system; Z88.1 Allergy status to other antibiotic agents; Z88.0 Allergy status to penicillin; Z91.030 Bee allergy status
CPT/HCPCS: 85025; 86850; 86900; 86901; 88307